=== PATIENT | male | born 1970 ===

== ENCOUNTER 2018-11-08 12:00 | Emergency (ER) | payer SELFPAY ==
[~2018-11-08] VITALS: Ht 167.6 cm; Wt 95.3 kg
--- NOTE | 2018-11-08 12:21 | ED Lower Extremity ---
General Chief Complaint: Lower Extremity Stated Complaint: R FOOT PAIN/GOUT Nursing Triage Note: TO TRIAGE WITH A LIMP. COMPLAINS OF PAIN IN RIGHT FOOT DUE TO GOUT. STATES HE IS OUT OF HIS MEDS WHICH ARE COLCHICINE AND INDOMETHACIN. Nursing Sepsis Screen: No Definite Risk History of Present Illness Date Seen by Provider: Nov 08, 2018 Time Seen by Provider: 12:10 Initial Comments 48-year-old male presents for right foot pain at the first MTP and ankle. He has a long-standing history of gout, he is normally on indomethacin 50 mg twice a day and colchicine, he reports it is slightly controlled when taking his medication but never fully controlled. In addition he is on medication for hypertension which he has not taken today. He is unaware if he is taking Allopurinol the past but he is not currently taking it. He denies any injuries to his right lower extremity. Pain/Injury Location: right ankle, right 1st toe Method of Injury: other Modifying Factors: Improves With Rest Allergies and Home Medications Allergies Uncoded Allergies: UNKNOWN BP MED (Allergy, Severe, 11/08/18) Home Medications Allopurinol 100 Mg Tablet, 100 MG PO DAILY Take 100 mg once daily for 2-3 days then increase to 300 mg daily for 4 days then discontinue medication. Prescribed by: ASHLEE SEGURA on 11/08/18 1234 Colchicine 0.6 Mg Tablet, 0.6 MG PO BID WITH MEALS Prescribed by: ASHLEE SEGURA on 11/08/18 1234 Indomethacin 25 Mg Capsule, 25 MG PO TID Prescribed by: ASHLEE SEGURA on 11/08/18 1234 Patient Home Medication List Home Medication List Reviewed: Yes Review of Systems Constitutional: no symptoms reported, see HPI Musculoskeletal: see HPI, joint pain (right ankle and first MTP) All Other Systems Reviewed Negative Unless Noted: Yes Past Dkwvepm-Tomfhb-Gatycs Hx Past Med/Social Hx: Reviewed Nursing Past Med/Soc Hx Patient Social History Recent Foreign Travel: No Contact w/Someone Who Travel: No Recent Infectious Disease Expo: No Physical Exam Vital Signs Vital Signs - First Documented 11/08/18 12:00 Temp 98.3 Pulse 94 Resp 16 B/P (MAP) 174/105 (128) Pulse Ox 98 O2 Delivery Room Air Capillary Refill : Less Than 3 Seconds Height, Weight, BMI Height: 5'6.00" Weight: 210lbs. oz. 95.059256uh; BMI Method:Stated General Appearance: WD/WN, no apparent distress HEENT: normal ENT inspection, TMs normal, pharynx normal Neck: non-tender, full range of motion, supple Cardiovascular: normal peripheral pulses, regular rate, rhythm Respiratory: chest non-tender, lungs clear, normal breath sounds Ankles: right ankle bone tenderness, right ankle limited range of motion ( secondary to pain), right ankle pain, right ankle soft tissue tenderness, right ankle swelling, right ankle other (no erythema or warmth) Feet: right foot limited range of motion (first MTP), right foot pain, right foot soft tissue tenderness (great toe), right foot swelling, right foot other ( no warmth or erythema) Neurologic/Tendon: normal sensation, normal motor functions, normal tendon functions Neurologic/Psychiatric: no motor/sensory deficits, alert, normal mood/affect, oriented x 3 Skin: normal color, warm/dry Lymphatic: no adenopathy Progress/Results/Core Measures Results/Orders Vital Signs/I&O 11/08/18 12:00 Temp 98.3 Pulse 94 Resp 16 B/P (MAP) 174/105 (128) Pulse Ox 98 O2 Delivery Room Air Blood Pressure Mean: 128 Departure Impression Primary Impression: Gout attack Qualified Codes: M10.9 - Gout, unspecified Disposition: HOME, SELF-CARE Condition: Improved Departure-Patient Inst. Decision time for Depature: 12:20 Referrals: NO,LOCAL PHYSICIAN (PCP/Family) Primary Care Physician Patient Instructions: Gout (DC) Add. Discharge Instructions: Take medication as prescribed. Take your blood pressure medicine daily Follow up at [facility] if your symptoms are not improving or worsen. Return to emergency department for new urgent care. All discharge instructions reviewed with patient and/or family. Voiced understanding. Scripts Indomethacin (Indomethacin) 25 Mg Capsule 25 MG PO TID, #30 CAP 0 Refills Prov: COLTON,ASHLEE SHAKE MAKER 11/08/18 Allopurinol (Allopurinol) 100 Mg Tablet 100 MG PO DAILY, #30 TAB 0 Refills Take 100 mg once daily for 2-3 days then increase to 300 mg daily for 4 days then discontinue medication. Prov: COLTONASHLEE SHAKE MAKER 11/08/18 Colchicine (Colchicine) 0.6 Mg Tablet 0.6 MG PO BID WITH MEALS, #20 TAB 0 Refills Prov: COLTON,ASHLEE SHAKE MAKER 11/08/18 ASHLEE SEGURA Nov 08, 2018 12:21
[2018-11-08] MEDS ORDERED: COLC0.6T56 PO (12:34)
[2018-11-08] MEDS ORDERED: INDO25CA15 PO (12:34)
[2018-11-08] MEDS ORDERED: ALLO100T PO (12:34)
[2018-11-08 12:37] VITALS: BP 174/105
== END 2018-11-08 12:37 | disposition home or self-care (01) ==
LOC: ER 12:02
DX: M10.9 Gout, unspecified (principal); I10 Essential (primary) hypertension; Z91.14 Patient's other noncompliance with medication regimen
CPT/HCPCS: 99282